=== PATIENT | female | born 2000 | race Caucasian/White ===

== ENCOUNTER 2024-10-03 20:37 | Emergency (ER) | payer BC, SELFPAY ==
[2024-10-03 20:47] VITALS: BP 134/76; PULSE 74; TEMP 36.7; O2SAT 97; BMI 28.3
--- NOTE | 2024-10-03 20:57 | PC.NURSE ---
Small circular red raised rash to BLE. No seeping or surrounding redness. Denies change of soap, laundry soap or lotion. Denies
--- NOTE | 2024-10-03 21:32 | ED.GENADUL1 ---
HPI HPI - General Adult General Chief complaint: Allergic Reaction Stated complaint: POSSIBLE ALLERGIC REACTION Time Seen by Provider: 10/03/24 21:27 Source: patient Mode of arrival: walk-in History of Present Illness HPI narrative: cc - itchy rash to lower legs Ths morning the patient woke and noticed that she had some patches of redness on both lower legs - left is worse than right. The affected areas are small. She applied some topical steroid cream tot he area but refused to take Benadryl. She decided to come to the ED [facility] for evaluation. She denies any throat swelling, difficulty talking or swallowing, swelling of the face or tongue. Rash is not involved in any other areas. She denied any known exposure -no new creams or lotions. She denies getting into any poison erik or poison oak recently. Related Data Allergies Allergy/AdvReac Type Severity Reaction Status Date / Time clarithromycin (From Biaxin) Allergy Hives Verified 10/03/24 20:47 PFSH PFSH Social History Little interest or pleasure in doing things: not at all Feeling down, depressed, or hopeless: not at all Exam Narrative Exam Narrative: Nurses notes and vital signs reviewed and patient is not hypoxic. afebrile General: Well-appearing and in no apparent distress. Skin: Warm, dry, no pallor noted. Several small patches of raised, erythematous skin change noted to both lower extremities with the left having more and slightly larger patches compared with the right. These areas are nontender to palpation. No blisters or vesicles. No bullae. Head: Normocephalic, atraumatic. Neck: Supple, non-tender. Eye: Pupils are equal, round and EOMI. No scleral icterus. Ears, Nose, Mouth, and Throat: no posterior oropharynx swelling or hypertrophy, uvula is mid-line, oral mucosa is moist Cardiovascular: Regular Rate and Rhythm without murmur, gallop or rub. Respiratory: No accessory muscle use or respiratory distress. Lungs are clear to auscultation, no wheezing, rales or rhonchi Musculoskeletal: normal ROM. Skin changes to both lower extremities are described above. No calf tenderness or popliteal tenderness. No lower extremity edema or swelling. Neurological: A&O x4. No cranial nerve dysfunction observed. No truncal ataxia. Moves all extremities. Sensation intact. Psychiatric: Cooperative and interactive. Normal mood and affect. Constitutional Vital Signs, click to edit/add: Last Vital Signs Temp 98.1 F 10/03/24 20:47 Pulse 74 10/03/24 20:47 Resp 20 10/03/24 20:47 BP 134/76 10/03/24 20:47 Pulse Ox 97 10/03/24 20:47 O2 Del Method Room Air 10/03/24 20:47 Course Vital Signs Vital signs: Vital Signs Temperature 98.1 F 10/03/24 20:47 Pulse Rate 74 10/03/24 20:47 Respiratory Rate 20 10/03/24 20:47 Blood Pressure 134/76 10/03/24 20:47 Pulse Oximetry 97 10/03/24 20:47 Oxygen Delivery Method Room Air 10/03/24 20:47 Temperature 98.1 F 10/03/24 20:47 Pulse Rate 74 10/03/24 20:47 Respiratory Rate 20 10/03/24 20:47 Blood Pressure 134/76 10/03/24 20:47 Pulse Oximetry 97 10/03/24 20:47 Oxygen Delivery Method Room Air 10/03/24 20:47 Medical Decision Making MDM Narrative Medical decision making narrative: The patient is having a localized dermatitis of uncertain etiology. I instructed her to continue to apply the topical steroid cream, which is only done once at this point, and also encouraged her to take oral Benadryl. She has that at home. Discharge Plan Discharge Chief Complaint: Allergic Reaction Clinical Impression: Dermatitis Patient Disposition: Home, Self-Care Time of Disposition Decision: 21:35 Print Language: Khmer Instructions: Dermatitis (ED) Referrals: TIM CHE [Primary Care Provider, TELEMARKETING REPRESENTATIVE] - 1 week
[2024-10-03] MEDS: DIPHENHYDRAMINE HCL 25 MG CAPSULE PO (21:50)
== END 2024-10-03 21:52 | disposition home or self-care (01) ==
PROVIDERS: Emergency Provider Emergency Medicine; PCP Nurse Practitioner
DX: L30.9 Dermatitis, unspecified (principal)
CPT/HCPCS: 99283

== ENCOUNTER 2024-10-11 17:27 | Emergency (ER) | payer BC, SELFPAY ==
[2024-10-11 17:31] VITALS: BP 142/94; PULSE 81; TEMP 36.6; O2SAT 98; BMI 27.4
--- NOTE | 2024-10-11 17:41 | CT_ITS ---
The [address] [address] Patient Name: SHAUNA RODRIGUEZ MRN: [id number] date: 2000 Sex: F Assigned Patient Location: ED.MAIN Current Patient Location: ED.MAIN Accession/Order Number: [id number] Exam Date: 10/11/2024 18:32 Report Date: 10/11/2024 18:33 At the request of: BRENDA RG Procedure: CT head/brain wo con CT BRAIN WITHOUT CONTRAST: CLINICAL HISTORY: persistent frontal headache since Sunday COMPARISON: None TECHNIQUE: Contiguous axial unenhanced images were obtained through the brain. This CT exam was performed using one or more following dose reduction techniques: Automated exposure control, adjustment of the mA and/or kV according to patient size, or use of iterative reconstruction technique. FINDINGS: There is no evidence of midline shift, intra or extra-axial fluid collection, hemorrhage or CT evidence of stroke. Posterior fossa appears unremarkable. Visualized intraorbital contents demonstrate no acute findings. Visualized paranasal sinuses are clear. The surrounding soft tissues are normal. CT/CT head/brain wo con IMPRESSION: NO ACUTE INTRACRANIAL ABNORMALITY. Impression dictated by: Shaan Andrews Jr., D.O. 10/11/2024 6:33 PM Dictation Location: [place] [address] Electronically authenticated by: [id number] Y Date: 10/11/2024 18:33
[2024-10-11 17:58] LABS: Hematocrit 37.7 % (36.0-48.0); Hemoglobin 12.7 g/dL (12.0-16.0); Immature Granulocytes Abs Auto 0.00 10^3/uL (0.00-0.03); Immature Granulocytes Pct Auto 0.0 % (0.0-0.5); Lymphocytes Absolute Auto 2.4 10^3/uL (1.2-3.8); Mean Corpuscular HGB Conc 33.7 g/dL (29.9-35.2); Mean Corpuscular Hemoglobin 28.6 pg (26.7-34.0); Mean Corpuscular Volume 84.9 fL (81.0-99.0); Platelet Count 251 10^3/uL (150-450); Red Blood Count 4.44 10^6/uL (4.20-5.40); White Blood Count 6.2 10^3/uL (4.0-11.0)
[2024-10-11 18:03] LABS: Anion Gap 15.4; Blood Urea Nitrogen 12.0 mg/dL (7.0-18.0); Calcium 8.9 mg/dL (8.5-10.1); Carbon Dioxide 24.2 mmol/L (21.0-32.0); Chloride 105 mmol/L (98-107); Estimated GFR (African America >60 (>=60 mL/min/1.73m^2); Estimated GFR (Non-African Ame >60 (>=60 mL/min/1.73m^2); Glucose 124 mg/dL (74-106); Potassium 3.6 mmol/L (3.5-5.1); Sodium 141 mmol/L (136-145)
[2024-10-11] MEDS: 0.9 % SODIUM CHLORIDE 1,000 ML 999 ML IV (18:03)
[2024-10-11] MEDS: DIPHENHYDRAMINE HCL 50 MG/ML VIAL 25 MG IVP (18:03)
[2024-10-11] MEDS: ACETAMINOPHEN 500 MG TABLET 1000 MG PO (18:03)
[2024-10-11] MEDS: KETOROLAC TROMETHAMINE 30 MG/ML VIAL IVP (18:03)
[2024-10-11] MEDS: METOCLOPRAMIDE HCL 10 MG/10 ML PO (18:03)
--- NOTE | 2024-10-11 18:03 | ED_ITS ---
HPI HPI - General Adult General Chief complaint: Headache Stated complaint: HEADACHE SINCE SUNDAY Time Seen by Provider: 10/11/24 17:27 Source: patient Mode of arrival: walk-in History of Present Illness HPI narrative: 23-year-old female presents to the ER with concerns of persistent headache. Patient reports pain is frontal aching throbbing 8/10 accompanied with phonophobia and photophobia. Symptoms started on Sunday gradual onset has not completely gone away despite seeing PCP and starting new prescription for migraines. Patient last took medication yesterday which helped mildly but did not fully relieve her symptoms. She did vomit earlier in the week and is unsure if she is dehydrated as she feels slightly dizzy which she describes as being on a boat with symptoms. She denies any loss of vision. She denies any abrupt onset symptoms and notes that this is not the worst headache of her life. She notes that her grandmother did of a brain aneurysm, but other family members have not been checked. She reports having similar headaches at least once a year but this is the first time she has had to present to the ER for treatment. Her significant other is present with her at the bedside and she denies any fever, falls or injury. Denies any loss of consciousness. Patient denies chance of and is aware of hygiene habits to help mitigate headaches with discussion of sleep and avoiding triggers such as alcohol. Onset (ago): day(s) (5 ) Location: Reports head Radiation: Reports non-radiation Severity: moderate Quality: Reports aching Pain Consistency: Reports colicky Relieving factors: Reports medication and rest Exacerbating factors: Reports movement Associated symptoms: Reports headaches and nausea/vomiting; Denies confusion, cough, diaphoresis, fever/chills, rash, seizure, shortness of breath or weakness Related Data Previous Rx's ?Medication ?Instructions ?Recorded ibuprofen 600 mg tablet 600 mg PO TID PRN pain #30 t abs 10/11/24 ondansetron HCl 4 mg tablet 4 mg PO Q6H PRN nausea and 10/11/24 vomiting #12 tabs Allergies Allergy/AdvReac Type Severity Reaction Status Date / Time clarithromycin (From Biaxin) Allergy Hives Verified 10/03/24 20:47 Review of Systems ROS Constitutional Denies: fever or chills Eyes Denies: change in vision or blurry vision Ears, nose, mouth, and throat Denies: throat pain, neck pain or throat swelling Cardiovascular Denies: chest pain, palpitations or edema Respiratory Denies: shortness of breath or cough Gastrointestinal Reports: nausea and vomiting; Denies: abdominal pain, coffee grounds in vomit or diarrhea Genitourinary Denies: painful urination or urinary frequency Musculoskeletal Denies: back pain, neck pain or extremity pain Integumentary/Breast Denies: rash, itching or redness Neurological Reports: headache and dizziness; Denies: numbness in extremities or difficulty communicating thoughts Psychiatric Denies: anxiety or mood swings Hematologic/Lymphatic Denies: easy bruising PFSH PFSH Social History Little interest or pleasure in doing things: not at all Feeling down, depressed, or hopeless: not at all Exam Narrative Exam Narrative: Vital signs and nurses notes reviewed. The patient is not hypoxic. General: The patient appears well and in no apparent distress. Patient is resting comfortably on cart. Skin: Warm, dry, no pallor noted. The patient has no evidence of rash, petechiae, or purpura noted. Head: Normocephalic, atraumatic, no temporal arterial tenderness Neck: Supple, trachea mid-line, no tenderness, no lymphadenopathy. No meningeal signs. No nuchal rigidity. Eye: Pupils are equal, round and reactive to light, EOMI Ears, Nose, Mouth, and Throat: Oral mucosa is moist, TMs are clear bilaterally, no hemotympanum noted. Cardiovascular: Regular Rate and Rhythm Respiratory: Patient is in no distress, no accessory muscle use, lungs are clear to auscultation, no wheezing, rales or rhonchi Back: non-tender, no CVA tenderness Musculoskeletal: normal ROM, no tenderness, no swelling, normal strength 5/5. Normal pulses to radial 2+ bilaterally and 2+ at DP and PT bilaterally and symmetrically. GI: Normal bowel sounds, no tenderness to palpation, no masses appreciated. No rebound, guarding, or rigidity noted. Neurological: A&O x4, normal equal software release engineer strength, The patient is not ataxic. The patient has normal speech. The patient has normal coordination. . Normal motor and sensory observed. Psychiatric: Cooperative Constitutional Vital Signs, click to edit/add: Last Vital Signs Temp 97.9 F 10/11/24 17:31 Pulse 81 10/11/24 17:31 Resp 16 10/11/24 17:31 BP 122/78 10/11/24 18:34 Pulse Ox 98 10/11/24 17:31 O2 Del Method Room Air 10/11/24 17:31 Course Vital Signs Vital signs: Vital Signs Temperature 97.9 F 10/11/24 17:31 Pulse Rate 81 10/11/24 17:31 Respiratory Rate 16 10/11/24 17:31 Blood Pressure 142/94 H 10/11/24 17:31 Pulse Oximetry 98 10/11/24 17:31 Oxygen Delivery Method Room Air 10/11/24 17:31 Temperature 97.9 F 10/11/24 17:31 Pulse Rate 81 10/11/24 17:31 Respiratory Rate 16 10/11/24 17:31 Blood Pressure 122/78 10/11/24 18:34 Pulse Oximetry 98 10/11/24 17:31 Oxygen Delivery Method Room Air 10/11/24 17:31 Medical Decision Making MDM Narrative Medical decision making narrative: Patient presents with history of at least once a year migraine headaches. Recently treated by her family doctor earlier this week to start new migraine medication which did not fully help her symptoms. She did have nausea and vomiting earlier in the week which has resolved. She rates current symptoms 8/10 denies any recent fever or illness and we reviewed that there has been no recent fall or injury. She does report her grandmother passing of a aneurysm in her brain later in life. She does not believe anyone else in her family has been seen for this or tested. Patient agreeable to IV fluids and medications given length of symptoms. Stated with IV fluid bolus, oral Tylenol, Toradol 30 mg IV, Benadryl 25 mg IV and Reglan 10 mg p.o. Patient also given Zofran 4 mg IV. Patient agreeable to CT head imaging as she has not had this in the past. She is aware that a aneurysm would likely require further evaluation with MRI/contrast which could be done outpatient with PCP if clinically indicated. Patient reevaluated, her mother is present at the bedside. We discussed her past medical history and the mother feels the aneurysms were not in her brain but in her abdomen. She had cancer at the end of her life and had multiple conditions. The patient at bedside appears to be feeling much better. She reports her discomfort down to a 2 out of 10 from previously reported 8 out of 10. Patient thankful and agreeable to disposition home and follow-up to PCP. We discussed her urinalysis and she denies any symptoms of UTI at this time. The patient is to followup with primary care physician in next 2-3 days or to return to the emergency department should any of the signs or symptoms worsen or new symptoms develop. Patient had questions answered. The patient agrees with the following Diagnosis and Treatment plan and the patient will be discharged home. Lab Data Lab results reviewed: Yes I reviewed the patient's lab results Labs: Lab Results 10/11/24 10/11/24 Range/Units 17:47 18:09 WBC 6.2 (4.0-11.0) 10^3/uL RBC 4.44 (4.20-5.40) 10^6/uL Hgb 12.7 (12.0-16.0) g/dL Hct 37.7 (36.0-48.0) % MCV 84.9 (81.0-99.0) fL MCH 28.6 (26.7-34.0) pg MCHC 33.7 (29.9-35.2) g/dL RDW 12.7 (11.0-15.0) % Plt Count 251 (150-450) 10^3/uL MPV 9.2 L (9.5-13.5) fL Neut % (Auto) 51.6 (43.0-75.0) % Lymph % (Auto) 39.0 (20.5-60.0) % [place]berry % (Auto) 6.0 (1.7-12.0) % Eos % (Auto) 2.6 (0.9-7.0) % Baso % (Auto) 0.8 (0.2-2.0) % Neut # (Auto) 3.2 (1.4-6.5) 10^3/uL Lymph # (Auto) 2.4 (1.2-3.8) 10^3/uL Newberry # (Auto) 0.4 (0.3-0.8) 10^3/uL Eos # (Auto) 0.2 (0.0-0.7) 10^3/uL Baso # (Auto) 0.1 (0.0-0.1) 10^3/uL Abs Immat Gran (auto) 0.00 (0.00-0.03) 10^3/uL Imm/Tot Granulo (auto) 0.0 (0.0-0.5) % Sodium 141 (136-145) mmol/L Potassium 3.6 (3.5-5.1) mmol/L Chloride 105 (98-107) mmol/L Carbon Dioxide 24.2 (21.0-32.0) mmol/L Anion Gap 15.4 BUN 12.0 (7.0-18.0) mg/dL Creatinine 0.75 (0.55-1.02) mg/dL Est GFR ( Amer) >60 (>=60 mL/min/1.73m^2) Est GFR (Non-Af Amer) >60 (>=60 mL/min/1.73m^2) BUN/Creatinine Ratio 16.0 Glucose 124 H (74-106) mg/dL Calcium 8.9 (8.5-10.1) mg/dL Serum HCG, Qual Negative (NEGATIVE) Urine Color Lt. yellow (YELLOW) Urine Clarity Clear (CLEAR) Urine pH 7.0 (5.0-9.0) Ur Specific [place] 1.010 (1.005-1.025) Urine Protein Negative (NEG/TRACE) mg/dL Urine Glucose (UA) Negative (NEGATIVE) mg/dL Urine Ketones Negative (NEGATIVE) mg/dL Urine Occult Blood Negative (NEGATIVE) Urine Nitrite Negative (NEGATIVE) Urine Bilirubin Negative (NEGATIVE) Urine Urobilinogen 1.0 (0.2-1.0) EU/dL Ur Leukocyte Esterase Trace A (NEGATIVE) Urine RBC None seen (0-2) #/HPF Urine WBC 0-2 A (NONE SEEN) #/HPF Ur Squamous Epith Cells Few A (NONE/RARE) #/LPF Urine Crystals None seen (None Seen) #/HPF Urine Bacteria Trace A (NONE SEEN) #/HPF Urine Casts None seen (NONE SEEN) #/LPF Urine Mucus None seen (NONE SEEN) Ur Culture Indicated? No Imaging Data CT scan - head: Radiologist's impression: ITS Impressions Head CT 10/11/24 17:41 IMPRESSION: NO ACUTE INTRACRANIAL ABNORMALITY. Impression dictated by: Shaan Andrews Jr., D.O. 10/11/2024 6:33 PM Dictation Location: [place] [address] Electronically authenticated by: [id number] Y Date: 10/11/2024 18:33 Discharge Plan Discharge Chief Complaint: Headache Clinical Impression: Cephalalgia Patient Disposition: Home, Self-Care Time of Disposition Decision: 18:50 Condition: Good Prescriptions / Home Meds: New ondansetron HCl 4 mg tablet 4 mg PO Q6H PRN (Reason: nausea and vomiting) Qty: 12 0RF ibuprofen 600 mg tablet 600 mg PO TID PRN (Reason: pain) Qty: 30 0RF Print Language: French Instructions: General Headache (ED) Additional Instructions: contact your family doctor for follow up in 3-5 days Referrals: TIM CHE [Primary Care Provider, MEDICAL LAB TECHNOLOGIST] - As soon as possible Roxanna Wharton DO [Physician, Neurology] - As needed
[2024-10-11 18:16] LABS: Glucose Urine UA NEGATIVE (NEGATIVE)
[2024-10-11 18:23] LABS: Cast Seen? NONE SEEN #/LPF (NONE SEEN); Crystals Seen? None Seen #/HPF (None Seen)
[2024-10-11 18:24] LABS: Urine Culture Indicated NO
[2024-10-11 18:34] VITALS: BP 122/78
[2024-10-11 19:10] VITALS: BP 115/73
== END 2024-10-11 19:22 | disposition home or self-care (01) ==
PROVIDERS: Personal Emergency Response Attendant; Emergency Provider Emergency Medicine; PCP Nurse Practitioner
DX: R51.9 Headache, unspecified (principal)
CPT/HCPCS: 36415; 70450; 80048; 81001; 84703; 85025; 96361; 96374; 96375; 99284; J1200; J1885; J2405